=== PATIENT | female | born 1990 | race Caucasian/White ===

== ENCOUNTER 2020-06-28 10:25 | Emergency (ER) | payer OTHER, SELFPAY ==
--- NOTE | ~2020-06-28 | US_ITS ---
EXAMINATION: US OB <=14 wk fetus w TV DATE: 06/28/2020 12:00 INDICATION: Pelvic pain during first trimester TECHNIQUE: Real-time pelvic transabdominal and transvaginal ultrasound was performed. COMPARISON: None. FINDINGS: The uterus measures 5.5 x 4.0 x 5.4 cm. The endometrial thickness measures 10 mm. No intrau terine gestational sac is identified. The right ovary is surgically absent. No right adnexal abnormal ity is seen. The left ovary measures 4.0 x 1.7 x 1.7 cm. There is normal vascular flow in the left ov laura. There is no free fluid in the pelvis. IMPRESSION: 1. of unknown location. Although no intrauterine gestational sac is seen, this may be due t o early gestation. If the patient is clinically stable, recommend followup with serial beta-hCG and u ltrasound. Reviewed, dictated and finalized at location A. IMPRESSION: 1. of unknown location. Although no intrauterine gestational sac is s een, this may be due to early gestation. If the patient is clinically stable, r ecommend followup with serial beta-hCG and ultrasound.
[2020-06-28 10:59] VITALS: BP 109/86; PULSE 93; RESP 18; TEMP 36.4; O2SAT 100
[2020-06-28 11:18] LABS: Basophils Percent Auto 0.9 % (0.2-1.2); Eosinophils Absolute Auto 0.1 K/mm3 (0-0.3); Eosinophils Percent Auto 3.1 % (0-4.4); Hematocrit 43.7 % (37.0-47.0); Immature Granulocyte Absolute 0.01 K/mm3 (0.00-0.031); Immature Granulocyte Percent A 0.2 % (0-0.5); Lymphocytes Absolute Auto 1.61 K/mm3 (0.9-3.2); Lymphocytes Percent Auto 37.8 % (18.3-44.2); Mean Corpuscular HGB Conc 34.3 g/dl (32-36); Mean Corpuscular Hemoglobin 32.7 pg (26-34); Mean Corpuscular Volume 95.2 fl (80-100); Mean Platelet Volume 8.7 fl (7.4-10.4); Monocytes Absolute Auto 0.4 K/mm3 (0.1-0.6); Monocytes Percent Auto 8.5 % (2.6-8.5); Neutrophils Absolute Auto 2.1 K/mm3 (1.3-6.7); Neutrophils Percent Auto 49.5 % (45.5-73.1); Platelet Count Result 203 k/mm3 (150-375); Red Blood Count 4.59 M/mm3 (4.2-5.4); Red Cell Distribution Width 11.8 % (11.5-14.5); White Blood Count 4.3 K/mm3 (4.5-10.0)
[2020-06-28 12:09] VITALS: BP 102/74; PULSE 63; RESP 18; TEMP 36.9; O2SAT 100
[2020-06-28 12:21] VITALS: BP 99/67
[2020-06-28 12:22] VITALS: BP 102/69; BP 106/74; PULSE 107; PULSE 76
--- NOTE | 2020-06-28 13:01 | ED.GENADULT ---
HPI - General Adult General Chief complaint: Vaginal Bleeding Stated complaint: , dark red blood Time Seen by Provider: 06/28/20 10:26 Source: patient Mode of arrival: ambulatory Limitations: no limitations History of Present Illness HPI narrative: Patient is a 29-year-old female who presents with spotting for 3 days noting that she had a positive test last night patient notes she has had some mild discomfort in the pelvic region but has history of endometriosis. Patient on arrival is in no distress notes that she passed some dark blood patient otherwise is resting comfortably in the room in no distress patient is G2, P1 patient has a specialist that she follows at [facility] due to her endometriosis. Related Data Home Medications Medication Instructions Recorded Confirmed No Home Medications 06/28/20 06/28/20 Allergies Allergy/AdvReac Type Severity Reaction Status Date / Time No Known Allergies Allergy Verified 06/28/20 11:01 Review of Systems Review of Systems: All systems reviewed & are unremarkable except as noted in HPI and below PMFSH Surgical History Surgical History (Updated 06/28/20 @ 13:03 by Dexter Ugalde PA-C) H/O section Social History Social History (Updated 06/28/20 @ 13:03 by Dexter Ugalde PA-C) Smoking status: Current some day smoker Gender identity (if verbalized by the patient): Female Exam Narrative: Exam Narrative: GENERAL: Well-appearing, well-nourished, and in no acute distress. HEAD: Normocephalic, atraumatic. EYES: PERRLA and EOMI. ENT: Nares clear, no rhinorrhea or epistaxis. Mucous membranes moist. CHEST: Clear to auscultation. No respiratory distress. No wheezes rales or rhonchi HEART: Regular rate and rhythm. No murmur heard. Normal peripheral pulses. ABDOMEN: Soft, nontender, nondistended EXTREMITIES: Normal range of motion. No edema. SKIN: Warm, dry, no rash. NEURO: No focal deficits. Alert and oriented x3. PSYCH: Normal mood and affect. 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 Multiple attempts were made to call the patient's bilingual recruiter with no return call Vital Signs Vital signs: Vital Signs Temperature 97.6 F 06/28/20 10:59 Pulse Rate 93 06/28/20 10:59 Respiratory Rate 18 06/28/20 10:59 Blood Pressure 109/86 06/28/20 10:59 Pulse Oximetry 100 06/28/20 10:59 Temperature 97.5 F L 06/28/20 13:46 Pulse Rate 64 06/28/20 13:46 Respiratory Rate 16 06/28/20 13:46 Blood Pressure 97/65 L 06/28/20 13:46 Pulse Oximetry 99 06/28/20 13:46 Medical Decision Making MDM Narrative Medical decision making narrative: Patient in the room in no distress aware of case findings treatment plan diagnosis was given RhoGam given to her blood type will follow with gynecology this week. 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 and will do so Tuesday was offered to be given one of our on-call obstetricians but will contact her as the notes that if she is worse or has changes will go to the facility where her clay shop supervisor is on staff patient feels comfortable with this plan Vital Signs Vital Signs: Vital Signs Temperature 97.6 F 06/28/20 10:59 Pulse Rate 93 06/28/20 10:59 Respiratory Rate 18 06/28/20 10:59 Blood Pressure 109/86 06/28/20 10:59 Pulse Oximetry 100 06/28/20 10:59 Temperature 97.5 F L 06/28/20 13:46 Pulse Rate 64 06/28/20 13:46 Respiratory Rate 16 06/28/20 13:46 Blood Pressure 97/65 L 06/28/20 13:46 Pulse Oximetry 99 06/28/20 13:46 Lab Data Result diagrams: 06/28/20 11:08
[2020-06-28 13:46] VITALS: BP 97/65; PULSE 64; RESP 16; TEMP 36.4; O2SAT 99
[2020-06-28] MEDS: RHO(D) IMMUNE GLOBULIN 300 MCG SYRINGE IM (13:54)
[2020-06-28 15:09] VITALS: BP 100/65; PULSE 61; RESP 15; TEMP 36.7; O2SAT 99
== END 2020-06-28 15:15 | disposition home or self-care (01) ==
PROVIDERS: Emergency Provider Emergency Medicine; PCP Internal Medicine
DX: O20.9 Hemorrhage in early pregnancy, unspecified (principal); O34.81 Maternal care for other abnormalities of pelvic organs, first trimester; N80.9 Endometriosis, unspecified; O99.331 Smoking (tobacco) complicating pregnancy, first trimester; F17.200 Nicotine dependence, unspecified, uncomplicated; Z3A.01 Less than 8 weeks gestation of pregnancy
CPT/HCPCS: 36415; 76801; 76817; 84702; 85025; 85461; 90384; 96372; 99284; J2790